=== PATIENT | male | born 1985 | race Caucasian/White ===

== ENCOUNTER 2022-03-15 06:05 | Day surgery (SDC) | payer OTHER ==
[2022-03-15] VITALS (9 sets, daily range): BP systolic 127–150; BP diastolic 74–96
[~2022-03-15] VITALS: Ht 182.9 cm; Wt 97.9 kg
[~2022-03-15 06:05] MED LIST: HYDR-3972 PO; famotidine 20mg tablet PO ONE; ringers solution, lacted 1,000 ML IV SCH
[2022-03-15 07:02] LABS: BASOPHILS % (AUTO) 0.4 % (0-1); EOSINOPHILS # (AUTO) 0.2 X10'3 (0-0.9); EOSINOPHILS % (AUTO) 3.2 % (0-6); LYMPHOCYTES # (AUTO) 1.6 X10'3 (1.1-4.8); LYMPHOCYTES % (AUTO) 25.9 % (21-51); MEAN CORPUSCULAR HEMOGLOBIN 30.5 PG (27.0-31.0); MEAN CORPUSCULAR HGB CONC 34.6 g/dL (33.0-36.5); MEAN CORPUSCULAR VOLUME 88.2 FL (78-98); MEAN PLATELET VOLUME 7.1 FL (7.4-10.4); MONOCYTES # (AUTO) 0.9 X10'3 (0-0.9); MONOCYTES % (AUTO) 14.1 % (2-12); NEUTROPHILS # (AUTO) 3.5 X10'3 (1.8-7.7); NEUTROPHILS % (AUTO) 56.4 % (42-75); PRE OP HEMATOCRIT 48.7 % (42.0-52.0); PRE OP HEMOGLOBIN 16.8 g/dL (14.0-17.9); PRE OP PLATELET COUNT 217 X10'3 (140-440); RED BLOOD COUNT 5.52 X10'6 (4.70-6.10); RED CELL DISTRIBUTION WIDTH 13.1 % (11.5-14.5)
[2022-03-15] MEDS ORDERED: vancomycin 1,000mg inj ONE (07:47)
[2022-03-15] MEDS ORDERED: ceFAZolin 2gm in dextrose, iso 50 ML IV ONE (07:50)
[2022-03-15] MEDS ORDERED: BUPIVAcaine 0.5% inj/PF 30 ML ONE (08:20)
[2022-03-15] MEDS ORDERED: fentaNYL /PF 50mcg/ml 5ml ampule ONE (08:22)
[2022-03-15] MEDS ORDERED: midazolam 1 mg/ML 2ml injection ONE (08:22)
[2022-03-15] MEDS ORDERED: ondansetron/PF 4mg/2ml inj IV PRN (09:05)
[2022-03-15] MEDS ORDERED: morphine 2 MG/ML inj. syringe IV PRN (09:05)
[2022-03-15] MEDS ORDERED: proCHLORperazine 10 MG/2 ml inj IV PRN (09:05)
[2022-03-15] MEDS ORDERED: meperidine/PF 25mg/ml syringe IV PRN ×3 (09:05)
[2022-03-15] MEDS ORDERED: morphine 4 MG/ML inj SYRINge IV PRN (09:05)
[2022-03-15] MEDS ORDERED: ringers solution, lacted 1,000 ML IV SCH (09:05)
[2022-03-15] MEDS ORDERED: BUPIVAcaine 0.5% inj/PF 30 ml vial IJ ONE (09:09)
[2022-03-15] MEDS ORDERED: propofol inj 20 ML IV ONE (09:23)
--- NOTE | 2022-03-15 09:36 | NUR ---
Received from OR via [facility] IN STABLE CONDITION, accompanied by Anesthesiologist and FUSELAGE FRAMER report given by FUSELAGE FRAMER AND Anesthesiolgist. Addendum: 03/15/22 at 1003 by Krysta Escobar RN Amended: Links added.
[2022-03-15] MEDS ORDERED: HYDROcodone/acetaminophen 10/325mg tab PO STA (10:25)
[2022-03-15 10:35] LABS: ALBUMIN/GLOBULIN RATIO 1.2 (1.1-1.5); ALKALINE PHOSPHATASE 51 IU/L (46-116); BLOOD UREA NITROGEN 16 MG/DL (7-18); BUN/CREATININE RATIO 14.8 (5.4-32.0); CREATININE 1.08 MG/DL (0.60-1.10); PRE OP ALT 36 U/L (30-65); PRE OP AST 25 U/L (10-37); PRE OP BILIRUB, TOTAL 0.5 MG/DL (0.0-1.0); PRE OP GLUCOSE 97 MG/DL (70-104); PRE OP POTASSIUM 4.4 MMOL/L (3.4-5.1); PRE OP SODIUM 143 MMOL/L (135-145); TOTAL CARBON DIOXIDE 30.4 MMOL/L (24-32); TOTAL PROTEIN 7.3 G/DL (6.4-8.2); eGFR 78 ML/MIN
[2022-03-15 10:40] LABS: CALCIUM 8.6 MG/DL (8.5-10.1)
--- NOTE | 2022-03-15 11:06 | NUR ---
PATIENT DISCHARGED FROM PACU IN STABLE CONDITION AFTER WRITTEN AND VERBAL DISCHARGE INSTRUCTIONS GIVEN. PATIENT GAVE VERBAL UNDERSTANDING OF INSTRUCTIONS. PATIENT LEFT FACILITY VIA WHEELCHAIR WITH RN. Addendum: 03/15/22 at 1111 by Krysta Escobar RN Amended: Links added.
[2022-03-15 12:19] LABS: CHLORIDE 108 MMOL/L (99-107); PRE OP ANION GAP 5 (8-16)
== END 2022-03-15 11:06 | disposition home or self-care (01) ==
LOC: PAS 06:05
PROVIDERS: ATTEND Orthopaedic Surgery
DX: S42.022A Displaced fracture of shaft of left clavicle, initial encounter for closed fracture (principal); Z20.822 Contact with and (suspected) exposure to COVID-19; V89.2XXA Person injured in unspecified motor-vehicle accident, traffic, initial encounter; Y92.89 Other specified places as the place of occurrence of the external cause; Y93.89 Activity, other specified; Y99.8 Other external cause status
CPT/HCPCS: 23515; 36415; 73000; 76000; 80053; 85025; 87635; C1713; C9803; J2175; J2250; J2704; J3010; J3370; J7030; J7120; S0020; Z7506; Z7508; Z7512; A4565; A4618; A7000